=== PATIENT | female | born 1980 | race Caucasian/White ===

== ENCOUNTER 2016-03-24 20:49 | Emergency (ER) | payer BC, OTHER ==
[2016-03-24 21:42] LABS: BASOPHILS % (AUTO) 1 % (0-3); EOSINOPHILS % (AUTO) 2 % (0-9); HEMATOCRIT 37 % (35-47); MONOCYTES % (AUTO) 4.8 % (0-12); NEUTROPHILS % (AUTO) 62.9 % (37-80)
[2016-03-24 21:53] LABS: ALBUMIN 3.5 gm/dl (3.4-5.0); CALCIUM 8.2 mg/dl (8.5-10.1); POTASSIUM 3.3 mMol/L (3.5-5.1)
[2016-03-24 22:07] VITALS: RESP 18; TEMP 98.6
[2016-03-24 22:28] VITALS: BP 128/56; PULSE 94; O2SAT 97
== END 2016-03-24 22:15 | disposition home or self-care (01) ==
LOC: ED 20:49
DX: R55 Syncope and collapse (principal)
CPT/HCPCS: 70450; 80053; 82962; 85025; 93005; 99284

== ENCOUNTER 2016-04-15 19:31 | Emergency (ER) | payer OTHER, BC, MEDICAID ==
[2016-04-15 19:31] VITALS: O2SAT 97
[2016-04-15 19:51] VITALS: RESP 16
[2016-04-15] MEDS ORDERED: KETOROLAC TROMETHAMINE 30 MG/ML SOL IM ONE (20:45)
[2016-04-15] MEDS ORDERED: KETOROLAC TROMETHAMINE 30 MG/ML SOL ONE (20:47)
[2016-04-15 20:54] VITALS: BP 112/56; PULSE 70; TEMP 98.2
== END 2016-04-15 21:04 | disposition home or self-care (01) | DRG 605 ==
LOC: ED 19:31
DX: S20.222A Contusion of left back wall of thorax, initial encounter (principal); W20.8XXA Other cause of strike by thrown, projected or falling object, initial encounter; Y99.0 Civilian activity done for income or pay
CPT/HCPCS: 73010; 96372; 99283; J1885

== ENCOUNTER 2016-09-18 23:05 | Emergency (ER) | payer BC, OTHER ==
[2016-09-18 23:05] VITALS: O2SAT 96
[2016-09-18 23:18] VITALS: RESP 20; TEMP 97.4
[2016-09-19 01:38] VITALS: BP 132/66; PULSE 65
== END 2016-09-19 00:17 | disposition home or self-care (01) ==
LOC: ED 23:05
DX: S93.402A Sprain of unspecified ligament of left ankle, initial encounter (principal); S93.602A Unspecified sprain of left foot, initial encounter; W20.8XXA Other cause of strike by thrown, projected or falling object, initial encounter
CPT/HCPCS: 73600; 73630; 99282

== ENCOUNTER 2016-09-26 22:47 | Emergency (ER) | payer OTHER, BC ==
[2016-09-26] MEDS ORDERED: KETOROLAC TROMETHAMINE 30 MG/ML SOL IM ONE (22:56)
[2016-09-26] MEDS ORDERED: KETOROLAC TROMETHAMINE 30 MG/ML SOL ONE (23:22)
[2016-09-26 23:30] VITALS: RESP 20; TEMP 98.2
[2016-09-27 00:42] VITALS: BP 135/90; PULSE 72; O2SAT 96
== END 2016-09-27 00:35 | disposition home or self-care (01) | DRG 556 ==
LOC: ED 22:47
DX: M62.838 Other muscle spasm (principal); R06.02 Shortness of breath; X50.0XXA Overexertion from strenuous movement or load, initial encounter; Y99.0 Civilian activity done for income or pay
CPT/HCPCS: 71020; 99283; J1885

== ENCOUNTER 2017-01-02 17:57 | Emergency (ER) | payer BC ==
[2017-01-02 18:19] VITALS: BP 118/55; PULSE 64; RESP 18; TEMP 98; O2SAT 97
== END 2017-01-02 18:30 | disposition home or self-care (01) ==
LOC: ED 17:57
DX: T16.1XXA Foreign body in right ear, initial encounter (principal)
CPT/HCPCS: 99282

== ENCOUNTER 2017-02-12 03:15 | Emergency (ER) | payer OTHER, BC ==
[2017-02-12 03:16] VITALS: O2SAT 97
[2017-02-12 03:46] VITALS: BP 137/84; PULSE 67; RESP 16; TEMP 96.8
== END 2017-02-12 04:30 | disposition home or self-care (01) | DRG 563 ==
LOC: ED 03:15
DX: S63.501A Unspecified sprain of right wrist, initial encounter (principal); W23.0XXA Caught, crushed, jammed, or pinched between moving objects, initial encounter
CPT/HCPCS: 73110; 99282